=== PATIENT | female | born 1975 | race American Indian/Alaskan Native ===

== ENCOUNTER 2017-01-01 12:29 | Emergency (ER) | payer SELFPAY ==
--- NOTE | 2017-01-01 14:52 | Emergency Department Report ---
ED General Adult HPI - General Chief complaint: High BP Stated complaint: POSS HIGH BP Time Seen by Provider: 01/01/17 14:22 Source: patient Mode of arrival: Ambulatory Limitations: No Limitations - History of Present Illness Initial comments: Patient comes into the ER today with complaints of elevated blood pressure readings at home over the past couple weeks. Patient states that she has been having intermittent headaches and has started checking her blood pressure as she believes that is what causing her headaches. Patient denies any chest pain , leg edema. Patient does state that she was seen by her primary care doctor a couple weeks ago and thinks that her blood pressure was normal at that time but she does not remember what it was. Patient does state that her entire family is on blood pressure medicines for hypertension. Patient denies any known medical problems and states that her doctor did blood work on her a couple weeks ago but she has not heard from him as to what the results were. - Related Data Previous Rx's Medication Instructions Recorded Last Taken Type HYDROcodone/APAP 7.5-325 [[place] 1 each PO Q8HR PRN #10 tablet 10/07/15 Unknown Rx 7.5/325] Ibuprofen [Motrin 800 MG tab] 800 mg PO Q8HR PRN #30 tablet 06/16/16 Unknown Rx Meclizine [Antivert] 25 mg PO TID PRN #9 tablet 06/16/16 Unknown Rx Ondansetron [Zofran ODT TAB] 4 mg PO Q8HR #15 tab.rapdis 06/16/16 Unknown Rx methOCARBAMOL [Robaxin TAB] 500 mg PO BID #20 tab 06/16/16 Unknown Rx Lisinopril [Zestril TAB] 10 mg PO QDAY #30 tablet 01/01/17 Unknown Rx Allergies Allergy/AdvReac Type Severity Reaction Status Date / Time shrimp Allergy Hives Verified 01/01/17 12:46 strawberry Allergy Hives Verified 01/01/17 12:46 ED Review of Systems ROS: Stated complaint: POSS HIGH BP Other details as noted in HPI Constitutional: denies: chills, fever Eyes: denies: eye pain, eye discharge, vision change ENT: denies: ear pain, throat pain Respiratory: denies: cough, shortness of breath, SOB with exertion, SOB at rest , wheezing Cardiovascular: denies: chest pain, palpitations, edema Endocrine: no symptoms reported Gastrointestinal: denies: abdominal pain, nausea, diarrhea Genitourinary: denies: urgency, dysuria, discharge Musculoskeletal: denies: back pain, joint swelling, arthralgia Skin: denies: rash, lesions Neurological: denies: headache, weakness, paresthesias Psychiatric: denies: anxiety, depression Hematological/Lymphatic: denies: easy bleeding, easy bruising ED Past Medical Hx - Past Medical History Previous Medical History?: Yes Hx Asthma: Yes Additional medical history: History of WPW with tachyarrhythmias, 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 - Surgical History Past Surgical History?: Yes Additional Surgical History: HEART ABLATION - Social History Smoking Status: Current Some Day Smoker Substance Use Type: Alcohol - Medications Home Medications: Home Medications Medication Instructions Recorded Confirmed Last Taken Type HYDROcodone/APAP 7.5-325 [[place] 1 each PO Q8HR PRN #10 tablet 10/07/15 Unknown Rx 7.5/325] Ibuprofen [Motrin 800 MG tab] 800 mg PO Q8HR PRN #30 tablet 06/16/16 Unknown Rx Meclizine [Antivert] 25 mg PO TID PRN #9 tablet 06/16/16 Unknown Rx Ondansetron [Zofran ODT TAB] 4 mg PO Q8HR #15 tab.rapdis 06/16/16 Unknown Rx methOCARBAMOL [Robaxin TAB] 500 mg PO BID #20 tab 06/16/16 Unknown Rx Lisinopril [Zestril TAB] 10 mg PO QDAY #30 tablet 01/01/17 Unknown Rx ED Physical Exam - General Limitations: No Limitations General appearance: alert, in no apparent distress - Head Head exam: Present: atraumatic, normocephalic, normal inspection - Eye Eye exam: Present: normal appearance, PERRL, EOMI Pupils: Present: normal accommodation - Expanded Eye Exam Expanded Pupils: Regular, Round: Bilateral, Reactive: Bilateral Sclera/Conjunctival: Normal Inspection: Bilateral Posterior chamber: Normal Inspection: Bilateral - ENT ENT exam: Present: normal exam, normal orophraynx, mucous membranes moist, TM's normal bilaterally, normal external ear exam, other (mild nasal mucosa congestion) - Neck Neck exam: Present: normal inspection, full ROM. Absent: tenderness, lymphadenopathy, thyromegaly - Respiratory Respiratory exam: Present: normal lung sounds bilaterally. Absent: respiratory distress, chest wall tenderness, accessory muscle use - Cardiovascular Cardiovascular Exam: Present: regular rate, normal rhythm, normal heart sounds. Absent: systolic murmur, diastolic murmur, rubs, gallop - GI/Abdominal GI/Abdominal exam: Present: soft, normal bowel sounds. Absent: distended, tenderness - Extremities Exam Extremities exam: Present: normal inspection, normal capillary refill. Absent: pedal edema, joint swelling, calf tenderness - Back Exam Back exam: Present: normal inspection - Neurological Exam Neurological exam: Present: alert, oriented X3, CN II-XII intact, normal gait, reflexes normal. Absent: motor sensory deficit - Psychiatric Psychiatric exam: Present: normal affect, normal mood - Skin Skin exam: Present: warm, dry, intact, normal color. Absent: rash ED Course Vital Signs 01/01/17 12:42 Temperature 98.3 F Pulse Rate 76 Respiratory 16 Rate Blood Pressure 155/98 O2 Sat by Pulse 99 Oximetry ED Medical Decision Making - Medical Decision Making Patient appears to be very levelheaded responsible individual. Patient has been keeping records of home blood pressure readings and has not had normal blood pressure readings in the past 2 weeks. Previous records from this ER reviewed with last visit being in May 2016 and patient had elevated blood pressure reading at that time as well. Patient has strong family history of hypertension. I believe the patient is a good candidate to starting some medication for her blood pressure at this time and she is to follow up with her primary care doctor in 2 weeks to reevaluate blood pressure at that time. I see no reasoning to obtain additional blood work at this time as her doctor recently did blood test on her. Patient has no signs of heart failure. Examination today. Patient is nontoxic and hemodynamically stable. Critical care attestation.: If time is entered above; I have spent that time in minutes in the direct care of this critically ill patient, excluding procedure time. ED Disposition Clinical Impression: Hypertension Disposition: - TO HOME OR SELFCARE Is pt being admited?: No Does the pt Need Aspirin: No Condition: Good Instructions: Hypertension (ED), How to Take a Blood Pressure (ED) Prescriptions: Lisinopril [Zestril TAB] 10 mg PO QDAY #30 tablet Referrals: PRIMARY CARE, [Primary Care Provider] - 3-5 Days Time of Disposition: 15:01
[2017-01-01 15:11] VITALS: BP 149/93
== END 2017-01-01 15:16 | disposition home or self-care (01) ==
LOC: ED 12:29
DX: I10 Essential (primary) hypertension (principal); J45.909 Unspecified asthma, uncomplicated; F17.200 Nicotine dependence, unspecified, uncomplicated; Z91.013 Allergy to seafood; Z91.018 Allergy to other foods
CPT/HCPCS: 99282